=== PATIENT | male | born 1950 | race Caucasian/White ===

== ENCOUNTER → 2020-08-12 | Outpatient (CLI) | payer MEDICARE, BC, OTHER ==
[2020-08-12 11:04] LABS: BUN/CREATININE RATIO 17 (0-10)
== END ==
LOC: LAB 09:15
PROVIDERS: Emergency Medicine
DX: Z12.5 Encounter for screening for malignant neoplasm of prostate (principal); I12.9 Hypertensive chronic kidney disease with stage 1 through stage 4 chronic kidney disease, or unspecified chronic kidney disease; N18.2 Chronic kidney disease, stage 2 (mild); R35.0 Frequency of micturition; E78.2 Mixed hyperlipidemia
CPT/HCPCS: 36415; 80053; 84153

== ENCOUNTER → 2020-08-28 | Outpatient (CLI) | payer MEDICARE, BC, OTHER | LOC: ECHO 10:12 | DX: R01.1 Cardiac murmur, unspecified (principal); I27.20 Pulmonary hypertension, unspecified; I08.1 Rheumatic disorders of both mitral and tricuspid valves; R93.1 Abnormal findings on diagnostic imaging of heart and coronary circulation | CPT/HCPCS: ECHO; 93306 ==

== ENCOUNTER → 2021-02-21 | Outpatient (CLI) | payer MEDICARE, BC ==
[2021-02-21 12:01] LABS: BUN/CREATININE RATIO 19 (0-10)
[2021-02-23 17:17] LABS: CHOLESTEROL, TOTAL 114 mg/dL (100-199); HDL SIZE 8.7 nm (>=9.2); HDL-C 27 mg/dL (>39); HDL-P (TOTAL) 25.9 umol/L (>=30.5); LARGE HDL-P 2.8 umol/L (>=4.8); LARGE VLDL-P 5.6 nmol/L (<=2.7); LDL SIZE 19.8 nm (>20.5); LDL SIZE 19.8 nm (>=20.8); LDL-C 67 mg/dL (0-99); LDL-P 1024 nmol/L (<1000); LP-IR SCORE 77 (<=45); SMALL LDL-P 770 nmol/L (<=527); TRIGLYCERIDES 109 mg/dL (0-149); VLDL SIZE 55.1 nm (<=46.6)
== END ==
LOC: LAB 09:34
PROVIDERS: Emergency Medicine
DX: E78.2 Mixed hyperlipidemia (principal); I12.9 Hypertensive chronic kidney disease with stage 1 through stage 4 chronic kidney disease, or unspecified chronic kidney disease; N18.2 Chronic kidney disease, stage 2 (mild)
CPT/HCPCS: 80053; 80061; 83704; 84550

== ENCOUNTER → 2021-08-22 | Outpatient (CLI) | payer BC | LOC: LAB 09:26 | DX: R97.20 Elevated prostate specific antigen [PSA] (principal) | CPT/HCPCS: 36415; 84153 ==